=== PATIENT | female | born 1950 | race Two or more races ===

== ENCOUNTER 2019-03-06 07:26 | Outpatient (CLI) | payer OTHER | END 2019-03-06 07:42 | disposition home or self-care (01) | LOC: SONOGRAMA 07:26 → MAMO-SONO 08:15 | DX: E03.8 Other specified hypothyroidism (principal); E04.2 Nontoxic multinodular goiter ==

== ENCOUNTER 2019-04-09 07:32 | Outpatient (CLI) | payer OTHER | END 2019-04-09 07:34 | disposition home or self-care (01) | LOC: SONOGRAMA 07:32 → MAMO-SONO 07:45 | DX: K30 Functional dyspepsia (principal); K25.9 Gastric ulcer, unspecified as acute or chronic, without hemorrhage or perforation ==

== ENCOUNTER 2019-05-04 07:11 | Outpatient (CLI) | payer OTHER | END 2019-05-04 07:14 | disposition home or self-care (01) | LOC: RAD 07:11 | DX: M25.551 Pain in right hip (principal); M25.552 Pain in left hip ==

== ENCOUNTER 2021-02-08 10:26 | Outpatient (CLI) | payer OTHER | END 2021-02-08 10:29 | disposition home or self-care (01) | LOC: SONOGRAMA 10:26 → MAMO-SONO 10:30 | DX: E03.8 Other specified hypothyroidism (principal); E04.8 Other specified nontoxic goiter ==